=== PATIENT | male | born 1995 | race Caucasian/White ===

== ENCOUNTER 2017-08-12 16:14 | Emergency (ER) | payer SELFPAY | END 2017-08-12 16:53 | disposition left against medical advice (07) | LOC: D.ER 16:14 | DX: K08.89 Other specified disorders of teeth and supporting structures (principal) ==

== ENCOUNTER 2017-08-12 18:20 | Emergency (ER) | payer SELFPAY ==
[~2017-08-12] VITALS: Ht 175.3 cm; Wt 72.7 kg
[2017-08-12 18:28] VITALS: Ht 175.3 cm; Wt 72.7 kg
== END 2017-08-12 21:34 | disposition left against medical advice (07) ==
LOC: D.ER 18:20
DX: K08.89 Other specified disorders of teeth and supporting structures (principal)

== ENCOUNTER 2017-08-12 23:53 | Emergency (ER) | payer SELFPAY ==
[2017-08-12 18:28] VITALS: BMI 23.6
== END 2017-08-13 00:29 | disposition left against medical advice (07) ==
LOC: D.ER 23:53
DX: K08.89 Other specified disorders of teeth and supporting structures (principal)

== ENCOUNTER 2017-08-28 00:07 | Emergency (ER) | payer SELFPAY ==
[~2017-08-28] VITALS: Ht 175.3 cm; Wt 72.7 kg
[2017-08-28 00:09] VITALS: Ht 175.3 cm; Wt 72.7 kg
[2017-08-28] MEDS ORDERED: ACETAMINOPHEN500 M1 PO (03:48)
[2017-08-28] MEDS ORDERED: IBUPROFEN800 MG PO (03:48)
[2017-08-28] MEDS ORDERED: CYCLOBENZAPRINE10 MG PO (03:48)
[2017-08-28 03:57] VITALS: BP 112/73
== END 2017-08-28 03:57 | disposition home or self-care (01) ==
LOC: D.ER 00:07
DX: S80.01XA Contusion of right knee, initial encounter (principal); X58.XXXA Exposure to other specified factors, initial encounter; Y93.89 Activity, other specified; Y92.89 Other specified places as the place of occurrence of the external cause; F17.200 Nicotine dependence, unspecified, uncomplicated

== ENCOUNTER 2018-05-17 17:13 | Emergency (ER) | payer SELFPAY ==
[~2018-05-17] VITALS: Ht 175.3 cm; Wt 68.2 kg
[~2018-05-17 17:13] MED LIST: ACETAMINOPHEN500 M1 PO; CYCLOBENZAPRINE10 MG PO; IBUPROFEN800 MG PO
[2018-05-17 17:29] VITALS: Ht 175.3 cm; Wt 68.2 kg
[2018-05-17 19:27] VITALS: BP 94/73
== END 2018-05-17 19:13 | disposition home or self-care (01) ==
LOC: D.ER 17:13
DX: S09.90XA Unspecified injury of head, initial encounter (principal); W20.8XXA Other cause of strike by thrown, projected or falling object, initial encounter; Y93.89 Activity, other specified; Y92.89 Other specified places as the place of occurrence of the external cause

== ENCOUNTER 2018-09-16 19:53 | Emergency (ER) | payer MEDICAID ==
[~2018-09-16] VITALS: Ht 175.3 cm; Wt 72.7 kg
[2018-09-16 19:57] VITALS: Ht 175.3 cm; Wt 72.7 kg
[2018-09-16] MEDS ORDERED: ORAL ANALGESIC9 GM TOPICAL (20:14)
[2018-09-16] MEDS ORDERED: CYCLOBENZAPRINE10 MG PO (20:14)
[2018-09-16] MEDS ORDERED: ACETAMINOPHEN500 M1 PO (20:14)
[2018-09-16] MEDS ORDERED: KEFLEX500 MG PO (20:14)
[2018-09-16] MEDS ORDERED: IBUPROFEN800 MG PO (20:14)
[2018-09-16 20:46] VITALS: BP 125/77
== END 2018-09-16 20:47 | disposition home or self-care (01) ==
LOC: D.ER 19:53
DX: K02.9 Dental caries, unspecified (principal); S02.5XXA Fracture of tooth (traumatic), initial encounter for closed fracture; F17.200 Nicotine dependence, unspecified, uncomplicated

== ENCOUNTER 2020-05-30 12:50 | Emergency (ER) | payer OTHER ==
[~2020-05-30] VITALS: Ht 175.3 cm; Wt 81.8 kg
[~2020-05-30 12:50] MED LIST changes: +KEFLEX500 MG PO; +ORAL ANALGESIC9 GM TOPICAL
[2020-05-30 12:54] VITALS: BP 133/70; Ht 175.3 cm; Wt 81.8 kg
[2020-05-30] MEDS ORDERED: TORADOL10 MG PO (13:48)
[2020-05-30] MEDS ORDERED: METHOCARBAMOL500 MG PO (13:48)
== END 2020-05-30 13:59 | disposition home or self-care (01) ==
LOC: D.ER 12:50
DX: M25.511 Pain in right shoulder (principal); M94.0 Chondrocostal junction syndrome [Tietze]; S29.011A Strain of muscle and tendon of front wall of thorax, initial encounter; S46.011A Strain of muscle(s) and tendon(s) of the rotator cuff of right shoulder, initial encounter; X58.XXXA Exposure to other specified factors, initial encounter